=== PATIENT | female | born 1965 | race Caucasian/White ===

== ENCOUNTER 2017-11-10 12:07 | Emergency (ER) | payer MEDICAID ==
[2017-11-10] MEDS ORDERED: methylPREDNISolone Sodium Succinate 125 MG/2 ML SDV IM ONE (12:25)
--- NOTE | 2017-11-10 12:33 | EDM.PDOC ---
ED HPI GENERAL MEDICAL PROBLEM - General Chief Complaint: Allergic Reaction Stated Complaint: ALLERGIC REACTION Time Seen by Provider: 11/10/17 12:25 Source of Information: Reports: Patient History Limitations: Reports: No Limitations - History of Present Illness INITIAL COMMENTS - FREE TEXT/NARRATIVE: HISTORY AND PHYSICAL: History of present illness: [Comes to the emergency room complaining of red scaly rash to scalp ears neck and upper back. Symptoms have been present for the past 12 days but continued to worsen. She complains of itchiness pain and weeping to the affected areas. She dyed her hair 2 weeks ago with a home kit, and woke up the next morning to erythematous itching scales to her L lateral neck and ear. This has continued to be troublesome and she has also developed worsening symptoms to her entire neck and bilat ears. Has had a previous episode similar to this several months ago. Resolved completely with steroid injection and Medrol dose pack. Denies fever and chills, no recent illness or injury. No chest pain, SOB, dysnpea. SHe is from [place], but is visiting her daughter in [place] currently. Smokes approx 4 cigarettes/day. ] Review of systems: As per history of present illness and below otherwise all systems reviewed and negative. Past medical history: As per history of present illness and as reviewed below otherwise noncontributory. Surgical history: As per history of present illness and as reviewed below otherwise noncontributory. Social history: No reported history of drug or alcohol abuse. Family history: As per history of present illness and as reviewed below otherwise noncontributory. Physical exam: HEENT: Atraumatic, normocephalic. Oral mucous membranes are pink and moist. Lungs: Clear to auscultation, breath sounds equal bilaterally. Heart: S1S2, regular.. Abdomen: Soft, nondistended, nontender. Negative for masses, guarding or rebound. Skin: Warm, dry, pink, intact. Scaling, erythematous plaques to bilateral temples, extending posteriorly approx 3". Raised Erythematous plaque and scales to back of neck. Lightly erythematous dry skin to upper back, scabs present due to scratching. Pelvis: Stable nontender. Genitourinary: Deferred. Rectal: Deferred. Extremities: Atraumatic. Neurovascular unremarkable. Neuro: Awake, alert, oriented. Motor and sensory unremarkable throughout. Exam nonfocal. Therapeutics: [Solu-Medrol 125mg IM] Impression: [Atopic dermatitis] Plan: [Medrol 125 mg given in the ER, Medrol Dosepak and desonide cream prescribed and sent to [facility]. Instructed patient to apply lotion to back. Desonide cream twice a day. Follow-up with dermatology when she gets home. Strict return precautions reviewed. She is in agreement with today's plan. Questions are answered and concerns are addressed.] Definitive disposition and diagnosis as appropriate pending reevaluation and review of above. - Related Data Allergies Allergy/AdvReac Type Severity Reaction Status Date / Time codeine Allergy Anaphylactic Verified 11/10/17 12:17 Shock Iodinated Contrast- Oral and Allergy Anaphylactic Verified 11/10/17 12:17 IV Dye Shock Penicillins Allergy Airway Verified 11/10/17 12:17 Tightness sulfamethoxazole Allergy Rash Verified 11/10/17 12:17 [From Bactrim] trimethoprim [From Bactrim] Allergy Rash Verified 11/10/17 12:17 Home Meds: Home Meds Desonide [Desonide 0.05%] 1 gm .XX BID #60 tube 11/10/17 [Rx] Famotidine 20 mg PO BID PRN 11/10/17 [History] Mupirocin Cream [Bactroban Crm] 15 gm .XX DAILY PRN 11/10/17 [History] Naproxen Sodium [Aleve] 500 mg PO BID 11/10/17 [History] Triamcinolone Acetonide [Triamcinolone Acetonide 0.1% Crm] 15 gm .XX DAILY PRN 11/10/17 [History] hydrOXYzine HCl [Atarax] 50 mg PO Q8H PRN 11/10/17 [History] methylPREDNISolone [Medrol] 4 mg PO DAILY #1 dospk 11/10/17 [Rx] Past Medical History Respiratory History: Reports: Asthma Psychiatric History: Reports: Anxiety - Infectious Disease History Infectious Disease History: Reports: Chicken Pox - Past Surgical History GI Surgical History: Reports: Cholecystectomy Female Surgical History: Reports: Tubal Ligation Musculoskeletal Surgical History: Reports: Other (See Below) Other Musculoskeletal Surgeries/Procedures:: arm surgery Social & Family History - Family History Family Medical History: Noncontributory - Tobacco Use Smoking Status *Q: Current Every Day Smoker Years of Tobacco use: 30 Packs/Tins Daily: 0.5 - Recreational Drug Use Recreational Drug Use: No ED ROS ALLERGIC REACTION - Review of Systems Review Of Systems: ROS reveals no pertinent complaints other than HPI. ED EXAM GENERAL NO PERIP PULSE - Physical Exam Exam: See Below Course - Vital Signs Last Recorded V/S: Last Vital Signs Temp 98.0 F 11/10/17 12:18 Pulse 110 H 11/10/17 12:18 Resp 20 11/10/17 12:18 BP 119/84 11/10/17 12:18 Pulse Ox 98 11/10/17 12:18 - Orders/Labs/Meds Meds: Medications Discontinued Medications Generic Name Dose Route Start Last Admin Trade Name Freq PRN Reason Stop Dose Admin Methylprednisolone Sodium Succinate 125 mg 11/10/17 12:25 11/10/17 12:57 Solu-Medrol IM 11/10/17 12:26 125 mg ONETIME ONE Administration Departure - Departure Time of Disposition: 12:35 Disposition: Home, Self-Care 01 Condition: Good Clinical Impression: Atopic dermatitis - Discharge Information Prescriptions: Desonide [Desonide 0.05%] 1 gm .XX BID #60 tube methylPREDNISolone [Medrol] 4 mg PO DAILY #1 dospk Instructions: Eczema Referrals: PCP,None [Primary Care Provider] - Forms: ED Department Discharge Additional Instructions: The following information is given to patients seen in the emergency department who are being discharged to home. This information is to outline your options for follow-up care. We provide all patients seen in our emergency department with a follow-up referral. The need for follow-up, as well as the timing and circumstances, are variable depending upon the specifics of your emergency department visit. If you don't have a primary care physician on staff, we will provide you with a referral. We always advise you to contact your personal physician following an emergency department visit to inform them of the circumstance of the visit and for follow-up with them and/or the need for any referrals to a consulting specialist. The emergency department will also refer you to a specialist when appropriate. This referral assures that you have the opportunity for follow-up care with a specialist. All of these measure are taken in an effort to provide you with optimal care, which includes your follow-up. Under all circumstances we always encourage you to contact your private physician who remains a resource for coordinating your care. When calling for follow-up care, please make the office aware that this follow-up is from your recent emergency room visit. If for any reason you are refused follow-up, please contact the [facility] emergency department at and asked to speak to the emergency department charge nurse. [facility] [address] [place] [id number] Follow-up with your local primary care provider. Or, if you are in the area for an extended amount of time, establish care with a local provider at the clinic listed above. Use medications as prescribed. Return to ER as needed as discussed.
== END 2017-11-10 13:25 | disposition home or self-care (01) ==
LOC: MW.ED 12:07
DX: L20.9 Atopic dermatitis, unspecified (principal); J45.909 Unspecified asthma, uncomplicated; Z88.2 Allergy status to sulfonamides; Z88.5 Allergy status to narcotic agent; Z88.0 Allergy status to penicillin; Z88.8 Allergy status to other drugs, medicaments and biological substances; Z79.899 Other long term (current) drug therapy
CPT/HCPCS: 96372; 99282; J2930